=== PATIENT | female | born 1990 | race Caucasian/White ===

== ENCOUNTER 2016-10-04 11:52 | Emergency (ER) | payer OTHER ==
[2016-10-04] MEDS ORDERED: NS 0.9% 1000 ML* 2,000 ML IV ONE ×2 (12:22→17:12)
[2016-10-04 12:56] LABS: Hematocrit 40 % (35-47); Mean Corpuscular HGB Conc 33 g/dl (31-36); Mean Corpuscular Hemoglobin 30 pg (27-31); Mean Corpuscular Volume 91 fL (80-97); Mean Platelet Volume 9 um3 (7.4-10.4); Red Blood Count 4.36 10^6/ul (4.0-5.4); Red Cell Distribution Width 14 % (10.5-15); White Blood Count 7.1 10^3/ul (3.5-10.8)
[2016-10-04 13:09] LABS: ALT 13 U/L (7-52); AST 14 U/L (13-39); Albumin 4.4 g/dL (3.2-5.2); Alkaline Phosphatase 46 U/L (34-104); Anion Gap 4 mmol/L (2-11); BUN/Creatinine Ratio 13.2 (8-20); Blood Urea Nitrogen 10 mg/dL (6-24); C Reactive Protein < 1.00 mg/L (< 5.00); CO2 Carbon Dioxide 27 mmol/L (22-32); Calcium 9.6 mg/dL (8.6-10.3); Chloride 105 mmol/L (101-111); Creatine Kinase 57 U/L (10-223); EGFR African American 116.5 (>60); EGFR Non-African American 90.6 (>60); Globulin 3.1 g/dL (2-4); Glucose 84 mg/dL (70-100); Lipase 26 U/L (11.0-82.0); Magnesium 2.1 mg/dL (1.9-2.7); Potassium 3.9 mmol/L (3.5-5.0); Sodium 136 mmol/L (133-145); Total Protein 7.5 g/dL (6.4-8.9)
[2016-10-04 13:43] LABS: TSH (Thyroid Stimulating Horm) 1.51 mcIU/mL (0.34-5.60)
--- NOTE | 2016-10-04 13:55 | RAD ---
Indication: Syncope. Single AP view of the chest with dual energy PA views demonstrate no mediastinal shift. Heart is of normal size and configuration. Lung perales are clear. IMPRESSION: No active cardiopulmonary disease is noted.
[2016-10-04] MEDS ORDERED: Meclizine TAB* 12.5 MG PO ONE ×2 (15:09→19:37)
--- NOTE | 2016-10-04 15:38 | RAD ---
Indication: Near syncopal episode. Headache and dizziness. Comparison: None. Technique: Noncontrast CT vertex of skull through foramen magnum. Report: The sulci, ventricles, and basal cisterns are normal for age. Gan matter white matter differentiation is preserved without evidence for edema. No intra or extra axial hemorrhage, mass, or fluid collection detected. Unremarkable orbital contents. Unremarkable calvarium and skull base. Unremarkable scalp. The visualized paranasal sinuses and mastoid air spaces are clear. IMPRESSION: Negative unenhanced head CT.
[2016-10-04 16:02] LABS: Urine Bacteria Absent (Absent); Urine Bilirubin Negative (Negative); Urine Glucose Negative (Negative); Urine Nitrite Negative (Negative)
[2016-10-04] MEDS ORDERED: Ketorolac INJ* 30 MG/ML 1 ML VIAL IV ONE (17:12)
[2016-10-04] MEDS ORDERED: Ondansetron INJ* 2 MG/ML VIAL IV ONE (17:12)
[2016-10-04] MEDS ORDERED: Morphine INJ* 4 MG/ML 1 ML SYRINGE IV ONE (19:36)
[2016-10-04] MEDS ORDERED: oxyCODONE/Acetamin 5/325 MG* TAB PO ONE (19:38)
[2016-10-04] MEDS ORDERED: Ondansetron ODT TAB* 4 MG PO ONE (19:39)
[2016-10-04 20:38] VITALS: BP 114/65
--- NOTE | 2016-10-08 15:33 | ED ---
Joaquin Connolyl Billy, scribed for Mike Krishnamurthy MD on 10/04/16 at 1505 . Dizziness - HPI Summary HPI Summary: Patient is a 26 year-old female coming to [facility] presenting with dizziness starting after waking up this morning at 0730. She describes room-spinning and near-syncope sensation, worse with head position change. However, she states she has had multiple, brief syncopal episodes this morning. The first episode occurred when she was tying her shoes, the second when she was reaching underneath a [employer] register at work, and a third in the bathroom here in the ED. Patient states she has had an ongoing diffuse frontal migraine since 1600 yesterday; positive history of migraines. Furthermore, she reports abnormally heavy menstrual bleeding starting yesterday. Denies any ankle swelling. Patient uses Paragard IUD. - History Of Current Complaint Chief Complaint: EDDizziness Stated Complaint: NEAR SYNCOPE Time Seen by Provider: 10/04/16 14:53 Hx Obtained From: Patient Onset/Duration: Gradually Timing: Constant Severity Initially: Moderate Severity Currently: Moderate Character: Room Spinning, Dizzy - near-syncope Aggravating Factor(s): Change In Head Position Alleviating Factor(s): Nothing Associated Signs And Symptoms: Positive: Other: - syncope, headache - Allergies/Home Medications Allergies/Adverse Reactions: Allergies Allergy/AdvReac Type Severity Reaction Status Date / Time No Known Allergies Allergy Verified 02/19/13 10:31 PMH/Surg Hx/FS Hx/Imm Hx Endocrine/Hematology History: Denies: Hx Diabetes, Hx Thyroid Disease Cardiovascular History: Denies: Hx Hypertension Respiratory History: Denies: Hx Asthma, Hx Chronic Obstructive Pulmonary Disease (COPD) GI History: Denies: Hx Ulcer Neurological History: Reports: Hx Migraine Psychiatric History: Reports: Hx Anxiety, Hx Depression - Surgical History Surgery Procedure, Year, and Place: t&a at 11 years old - Immunization History Date of Influenza Vaccine: 2015 Infectious Disease History: No Infectious Disease History: Denies: Hx Clostridium Difficile, Hx Hepatitis, Hx Human Immunodeficiency Virus (HIV), Traveled Outside the [place] in Last 30 Days - Social History Alcohol Use: Occasionally Substance Use Type: Reports: None Smoking Status (MU): Light Every Day Tobacco Smoker Have You Smoked in the Last Year: No Review of Systems Negative: Fever Positive: other - abnormally heavy menstrual bleeding Neurological: Other - dizziness Positive: Headache, Syncope - near-syncope All Other Systems Reviewed And Are Negative: Yes Physical Exam Triage Information Reviewed: Yes Vital Signs On Initial Exam: Initial Vitals Temp Pulse Resp BP Pulse Ox 98.8 F 99 18 144/85 100 10/04/16 11:59 10/04/16 11:59 10/04/16 11:59 10/04/16 11:59 10/04/16 11:59 Vital Signs Reviewed: Yes Appearance: Positive: Well-Appearing, No Pain Distress Skin: Positive: Warm, Skin Color Reflects Adequate Perfusion, Dry Head/Face: Positive: Normal Head/Face Inspection Eyes: Positive: EOMI, LUIS ALBERTO ENT: Positive: Normal ENT inspection Neck: Positive: Supple, Nontender Respiratory/Lung Sounds: Positive: Clear to Auscultation, Breath Sounds Present Cardiovascular: Positive: RRR Abdomen Description: Positive: Nontender, Soft Musculoskeletal: Positive: Normal, Strength/ROM Intact Neurological: Positive: Normal, Sensory/Motor Intact, Alert, Oriented to Person Place, Time Psychiatric: Positive: Affect/Mood Appropriate - Bambi Coma Scale Coma Scale Total: 15 Diagnostics - Vital Signs Vital Signs Temp Pulse Resp BP Pulse Ox 10/04/16 13:06 99.7 F 100 10/04/16 13:05 92 123/75 10/04/16 11:59 98.8 F 99 18 144/85 100 - Laboratory Lab Results: Lab Results 10/04/16 10/04/16 10/04/16 Range/Units 12:40 12:40 12:40 WBC 7.1 (3.5-10.8) 10^3/ul RBC 4.36 (4.0-5.4) 10^6/ul Hgb 13.0 (12.0-16.0) g/dl Hct 40 (35-47) % MCV 91 (80-97) fL MCH 30 (27-31) pg MCHC 33 (31-36) g/dl RDW 14 (10.5-15) % Plt Count 267 (150-450) 10^3/ul MPV 9 (7.4-10.4) um3 Neut % (Auto) 58.0 (38-83) % Lymph % (Auto) 32.2 (25-47) % Gaines % (Auto) 7.8 (1-9) % Eos % (Auto) 1.2 (0-6) % Baso % (Auto) 0.8 (0-2) % Absolute Neuts (auto) 4.1 (1.5-7.7) 10^3/ul Absolute Lymphs (auto) 2.3 (1.0-4.8) 10^3/ul Absolute Monos (auto) 0.6 (0-0.8) 10^3/ul Absolute Eos (auto) 0.1 (0-0.6) 10^3/ul Absolute Basos (auto) 0.1 (0-0.2) 10^3/ul Absolute Nucleated RBC 0.01 10^3/ul Nucleated RBC % 0.1 INR (Anticoag Therapy) 1.01 (0.89-1.11) APTT 33.0 (26.0-36.3) seconds Sodium 136 (133-145) mmol/L Potassium 3.9 (3.5-5.0) mmol/L Chloride 105 (101-111) mmol/L Carbon Dioxide 27 (22-32) mmol/L Anion Gap 4 (2-11) mmol/L BUN 10 (6-24) mg/dL Creatinine 0.76 (0.51-0.95) mg/dL Est GFR ( Amer) 116.5 (>60) Est GFR (Non-Af Amer) 90.6 (>60) BUN/Creatinine Ratio 13.2 (8-20) Glucose 84 (70-100) mg/dL Lactic Acid (0.5-2.0) mmol/L Calcium 9.6 (8.6-10.3) mg/dL Magnesium 2.1 (1.9-2.7) mg/dL Total Bilirubin 0.30 (0.2-1.0) mg/dL AST 14 (13-39) U/L ALT 13 (7-52) U/L Alkaline Phosphatase 46 (34-104) U/L Total Creatine Kinase 57 (10-223) U/L CK-MB (CK-2) 0.9 (0.6-6.3) ng/mL Troponin I 0.00 (<0.04) ng/mL C-Reactive Protein < 1.00 (< 5.00) mg/L Total Protein 7.5 (6.4-8.9) g/dL Albumin 4.4 (3.2-5.2) g/dL Globulin 3.1 (2-4) g/dL Albumin/Globulin Ratio 1.4 (1-3) Lipase 26 (11.0-82.0) U/L TSH 1.51 (0.34-5.60) mcIU/mL Beta HCG, Quant < 0.60 mIU/mL 10/04/16 Range/Units 12:40 WBC (3.5-10.8) 10^3/ul RBC (4.0-5.4) 10^6/ul Hgb (12.0-16.0) g/dl Hct (35-47) % MCV (80-97) fL MCH (27-31) pg MCHC (31-36) g/dl RDW (10.5-15) % Plt Count (150-450) 10^3/ul MPV (7.4-10.4) um3 Neut % (Auto) (38-83) % Lymph % (Auto) (25-47) % Gaines % (Auto) (1-9) % Eos % (Auto) (0-6) % Baso % (Auto) (0-2) % Absolute Neuts (auto) (1.5-7.7) 10^3/ul Absolute Lymphs (auto) (1.0-4.8) 10^3/ul Absolute Monos (auto) (0-0.8) 10^3/ul Absolute Eos (auto) (0-0.6) 10^3/ul Absolute Basos (auto) (0-0.2) 10^3/ul Absolute Nucleated RBC 10^3/ul Nucleated RBC % INR (Anticoag Therapy) (0.89-1.11) APTT (26.0-36.3) seconds Sodium (133-145) mmol/L Potassium (3.5-5.0) mmol/L Chloride (101-111) mmol/L Carbon Dioxide (22-32) mmol/L Anion Gap (2-11) mmol/L BUN (6-24) mg/dL Creatinine (0.51-0.95) mg/dL Est GFR ( Amer) (>60) Est GFR (Non-Af Amer) (>60) BUN/Creatinine Ratio (8-20) Glucose (70-100) mg/dL Lactic Acid 1.1 (0.5-2.0) mmol/L Calcium (8.6-10.3) mg/dL Magnesium (1.9-2.7) mg/dL Total Bilirubin (0.2-1.0) mg/dL AST (13-39) U/L ALT (7-52) U/L Alkaline Phosphatase (34-104) U/L Total Creatine Kinase (10-223) U/L CK-MB (CK-2) (0.6-6.3) ng/mL Troponin I (<0.04) ng/mL C-Reactive Protein (< 5.00) mg/L Total Protein (6.4-8.9) g/dL Albumin (3.2-5.2) g/dL Globulin (2-4) g/dL Albumin/Globulin Ratio (1-3) Lipase (11.0-82.0) U/L TSH (0.34-5.60) mcIU/mL Beta HCG, Quant mIU/mL Result Diagrams: 10/04/16 12:40 10/04/16 12:40 Lab Statement: Any lab studies that have been ordered have been reviewed, and results considered in the medical decision making process. - Radiology CXR Xray Interpretation: No Acute Changes Radiology Interpretation Completed By: Radiologist - CT Brain CT Interpretation: No Acute Changes CT Interpretation Completed By: Radiologist - EKG 1505 EKG Interpretation: NSR 65 bpm, no ectopy, 1mm ST elevation in V2 Re-Evaluation - Re-Evaluation First Eval Re-Evaluation Time: 17:12 Change: Unchanged Second Eval Re-Evaluation Time: 19:21 Change: Improved Dizzy Course/Dx - Course Assessment/Plan: stable discharge - Diagnoses Provider Diagnoses: Syncope, near Discharge - Discharge Plan Condition: Stable Disposition: HOME Prescriptions: Amoxicillin/Clavulanate TAB* [Augmentin TAB 875*] 875 mg PO BID #20 tab Meclizine HCl [Meclizine 25] 25 mg PO Q6HR PRN #12 tab PRN Reason: Vertigo Ondansetron ODT TAB* [Zofran Odt TAB*] 4 mg PO Q6H PRN #10 tab.odt PRN Reason: Nausea oxyCODONE/Acetamin 5/325 MG* [Percocet 5/325 TAB*] 1 tab PO Q4H PRN #10 tab MDD 6 PRN Reason: Pain Patient Education Materials: Vertigo (ED), General Headache (ED) Referrals: [facility] PHYSICIAN REFERRAL [Outside] No Primary Care Phys,NOPCP [Primary Care Provider] - Additional Instructions: FOLLOW UP WITH YOUR DOCTOR. RETURN TO THE EMERGENCY DEPARTMENT FOR ANY WORSENING OF YOUR CONDITION; PAIN, WEAKNESS, NUMBNESS, YOU FEEL ILL OR QUESTIONS OR CONCERNS. The documentation as recorded by the Joaquin padilla Billy accurately reflects the service I personally performed and the decisions made by me, Mike Krishnamurthy MD.
== END 2016-10-04 20:38 | disposition home or self-care (01) ==
LOC: ED 11:52
DX: R55 Syncope and collapse (principal); R42 Dizziness and giddiness; R51 Headache; F17.210 Nicotine dependence, cigarettes, uncomplicated
CPT/HCPCS: 36415; 70450; 71010; 80053; 81003; 81015; 82550; 82553; 83605; 83690; 83735; 84443; 84484; 84702; 85025; 85610; 85730; 86140; 93005; 96374; 96375; 99284; A9270-GY; J1885; J2270; J2405